=== PATIENT | female | born 2005 | race Hispanic/Latino ===

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

== ENCOUNTER 2024-09-11 12:00 | Emergency (ER) | payer OTHER, SELFPAY ==
--- OUTSIDE RECORDS SUMMARY | 2024-09-11 12:07 | XMS REPORT | Continuity of Care Document ---
Author Name Unknown Address [address] [facility] [address] [place] [address] [facility] thconnect Address [address] [facility] [place] [address] Care Team Providers Care Joint Setter Name Role Phone Pcp, Patient Does Not Have A Primary Care Physic cristiano [email or web address] Attending Clinician Lisaa barbara Doctor Unassigned, [place] Attending Clinician U Cristino Aquino MD Attending Clinician [phone] CRISTINO SAEED Attending Clinician Unavailable Ann Merritt Attending Clinician [phone] Gina Gray Attending Clinician [phone] [email or web address]_S Admitting Clinician Dwayne jimenez Payers Payer Name Policy Type Policy Number Effective Date Expirati on Date Source [facility] [id number] 2018 00:00:00 Problems Condition Name Condition Details Condition Category Status Onset Date Resolution Date Last Treatment Date Treating Clinician Comments Source Encounter for contracept marlin management , unspecifie d type Encounter for contracept marlin management , unspecifie d type Disease Active 05-18 00:00: 00 [facility] High risk sexual behavior in adolescent High risk sexual behavior in adolescent Disease Active 05-18 00:00: 00 [facility] Class 1 obesity due to excess calories with body mass index (BMI) of 34.0 to 34.9 in adult, unspecifie d whether serious comorbidit y present Class 1 obesity due to excess calories with body mass index (BMI) of 34.0 to 34.9 in adult, unspecifie d whether serious comorbidit y present Disease Active 05-18 00:00: 00 [facility] Class 1 obesity due to excess calories with body mass index (BMI) of 34.0 to 34.9 in adult, unspecifie d whether serious comorbidit y present Class 1 obesity due to excess calories with body mass index (BMI) of 34.0 to 34.9 in adult, unspecifie d whether serious comorbidit y present Disease Active 05-18 00:00: 00 [facility] BMI 34.0-34.9, adult BMI 34.0-34.9, adult Disease Active 05-18 00:00: 00 [facility] Vaginal itching Vaginal itching Disease Active 05-18 00:00: 00 [facility] Allergies, Adverse Reactions, Alerts Allergy Name Allergy Type Status Severity Reaction(s) Onset Date Inactive Date Treating Clinician Comments Source NO KNOWN ALLERGIE S Drug Class Active [facility] Social History Social Habit Start Date Stop Date Quantity Comments Source [facility] to SARS-CoV-2 (event) Not sure [facility] History SDOH Alcohol Std Drinks [facility] History SDOH Alcohol Binge [facility] History SDOH Alcohol Comment [place] [facility] History of Social function 2023-07-01 00:00:00 2023-07-01 00:00:00 [facility] Alcohol intake 2023-07-01 00:00:00 2023-07-01 00:00:00 Lifetime non-drinker (finding) [facility] Tobacco use and exposure 2019-05-18 00:00:00 2019-05-18 00:00:00 Smokeless tobacco non-user [facility] History SDOH Alcohol Frequency 2019-05-18 00:00:00 2019-05-18 00:00:00 1 [facility] Sex Assigned At 2005 00:00:00 2005 00:00:00 [facility] Smoking Status Start Date Stop Date Source Never smoked tobacco [facility] Medications Ordered Medication Name Filled Medication Name Start Date Stop Date Current Medication? Ordering Clinician Indication Dosage Frequency Signature (SIG) Comments Components Source predniSONE (DELTASONE) tablet 40 mg 2022-09 02:15: 00 07-02 01:32 :00 No 40mg 40 mg, Oral, ONCE NOW, 1 dose, On Wed07/01/23 at 2115, MARRY [facility] albuterol (PROVENTIL) 2.5 mg /3 mL (0.083 %) nebulizer solution 2.5 mg 2022-09 01:30: 00 07-02 01:42 :00 No 2.5mg 2.5 mg, Inhalation , ONCE, 1 dose, On Wed07/01/23 at 2030, STAT [facility] albuterol 90 mcg/actuati on inhaler 2022-09 00:00: 00 Yes [id number] 2{puff} Inhale 2 Puffs every 4 (four) hours as needed for Wheezing, Shortness of Breath or Bronchospa sm. [facility] predniSONE 20 mg tablet 2022-09 00:00: 00 Yes [id number] Take 2 tablets PO daily [facility] PNV 11-Iron Fum-Folic Acid-OM3 (C-GORGE DHA) 28 mg iron-1 mg -200 mg Cap 2022-09 00:00: 00 Yes [id number] 1{capsu le} Take 1 capsule by mouth in the morning. [facility] phenazopyri dine (PYRIDIUM) tablet 200 mg 06-04 01:30: 00 06-04 00:36 :00 No 200mg 200 mg, Oral, ONCE NOW, 1 dose, On Wed06/03/21 at 2030, MARRY [facility] cefTRIAXone (ROCEPHIN) 2,000 mg in NaCl 0.9% (NS) 100 mL MINI-BAG 06-04 01:15: 00 06-04 01:05 :00 No 2000mg 2,000 mg, IV Piggyback, ONCE, 1 dose, On Wed06/03/21 at 2015, Administer over 30 Minutes, 100 mL
Reas on for Anti-Infec tive: Documented Infection< br>Documen naty Infection Site: Urine
D uration of Therapy: 7 days [facility] ibuprofen (IBU) tablet 800 mg 06-04 00:15: 00 06-04 00:37 :00 No 800mg 800 mg, Oral, ONCE, 1 dose, On Wed06/03/21 at 1915, [facility] acetaminoph en (TYLENOL) tablet 1,000 mg 06-04 00:15: 00 06-04 00:37 :00 No 1000mg 1,000 mg, Oral, ONCE, 1 dose, [facility]06/03/21 [facility] 0.9% (NS) bolus infusion 2,736 mL 06-04 00:15: 00 06-04 04:28 :00 No 30mL/kg at 999 mL/hr, 2,736 mL (30 mL/kg ?91.2 kg), IV Piggyback, ONCE, 1 dose, On Wed06/03/21 at 1915, STAT [facility] iopamidol (ISOVUE 370-500 mL) injection 120 mL 06-03 23:25: 00 06-03 23:45 :00 No 120mL 120 mL, Intravenou s, ONCE, 1 dose, On Wed06/03/21 at 1845, Routine [facility] cefdinir 300 mg capsule 06-03 00:00: 00 06-14 04:59 :00 No [id number] 300mg Take 1 capsule by mouth 2 (two) times daily for 10 days. [facility] acetaminoph en-codeine 300-30 mg tablet 06-03 00:00: 00 06-11 04:59 :00 No [id number] 1{tbl} Take 1 tablet by mouth every 6 (six) hours as needed for Pain (scale 7-10) for up to 7 days. Indication s: acute pain [facility] Cetirizine (ZYRTEC) 10 mg capsule 05-18 08:30: 36 Yes Take by mouth. [facility] albuterol sulfate (VENTOLIN INHALE) 05-18 08:30: 36 Yes Inhale. [facility] Vital Signs Vital Name Observation Time Observation Value Comments S landen Heart rate 2023-07-02 01:55:00 95 /min [facility] Respiratory rate 2023-07-02 01:55:00 20 /min [facility] Oxygen saturation in Arterial blood by Pulse oximetry 2023-07-02 01:55:00 99 /min [facility] Systolic blood pressure 2023-07-02 01:55:00 125 mm[Hg] [facility] Diastolic blood pressure 2023-07-02 01:55:00 73 mm[Hg] [facility] Body temperature 2023-07-02 01:15:00 37.11 Jailyn [facility] Body weight 2023-07-02 01:13:00 99.791 kg [facility] Heart rate 2021-06-04 03:05:00 87 /min [facility] Body temperature 2021-06-04 03:05:00 37.44 Jailyn [facility] Systolic blood pressure 2021-06-04 03:00:00 93 mm[Hg] [facility] Diastolic blood pressure 2021-06-04 03:00:00 66 mm[Hg] [facility] Respiratory rate 2021-06-04 03:00:00 17 /min [facility] Oxygen saturation in Arterial blood by Pulse oximetry 2021-06-04 03:00:00 97 /min [facility] Body weight 2021-06-03 22:51:00 91.173 kg [facility] Procedures Procedure Date / Time Performed Performing Clinician Source ASSIGNMENT OF BENEFITS 2023-07-02 02:00:08 Docto r Unassigned, [place] [facility] NOTICE OF PRIVACY PRACTICES 2023-07-02 01:23:40 Doctor Unassigned, [place] [facility] CONSENT/REFUSAL FOR DIAGNOSIS AND TREATMENT 2023-07-02 01:09:39 Doctor Unassigned, [place] [facility] CT ABDOMEN PELVIS W CONTRAST 2021-06-03 23:32:57 Ann Foster [facility] POCT TEST 2021-06-03 23:29:00 Whitney Foster [facility] LACTIC ACID WHOLE BLOOD 2021-06-03 23:28:00 Uzma Foster [facility] BLOOD CULTURE SCREEN 2021-06-03 23:25:00 Janett Foster [facility] TROPONIN I 2021-06-03 [facility]:24[facility] (92165[facility] (ALB,T.PRO,BILI T,BU/BC,ALT,AST,ALK PHOS) 2021-06-03 23:24:00 Ann Foster [facility] BASIC METABOLIC PANEL (NA, K, CL, CO2, GLUCOSE, BUN, CREATININE, CA) 2021-06-03 23:24:00 Ann Foster [facility] CBC WITH DIFF 2021-06-03 23:24:00 Ann Foster [facility] PROTHROMBIN TIME / INR 2021-06-03 23:24:00 Joie Foster [facility] URINALYSIS 2021-06-03 23:24[facility]00 [facility]-BNP 2021-06-03 23:24:00 Amanda Foster [facility] COVID-19 (ID NOW RAPID TESTING) 2021-06-03 23:23:00 Ann Foster [facility] CONSENT/REFUSAL FOR DIAGNOSIS AND TREATMENT 2021-06-03 22:44:10 Doctor Unassigned, [place] [facility] Encounters Start Date/Time End Date/Time Encounter Type Admission Type Attending Clinicians Care Facility Care Department Encounter ID Source 2021-07-15 00:23:35 Emergency [facility] [id number] [facility] 2023-07-13 00:00:00 2023-07-13 00:00:00 Outpatient GC_GCBZW_Ka diyala_S PRIV PRIV [id number] [facility] 2023-07-12 00:00:00 2023-07-12 00:00:00 Outpatient GC_GCBZW_Ka danny_S [facility] [id number] [facility] 2023-07-02 00:00:00 2023-07-02 00:00:00 Patient Secure Msg Doctor Unassigned, [place] [facility] 1..114 350.1.13.10 4.2.7.2.686 [id number] [facility] 2023-07-01 20:17:00 2023-07-01 21:25:00 Emergency Cristino Saeed [facility] 1.84.114 350.1.13.10 4.2.7.2.686 [id number] [facility] 2023-07-01 20:17:00 2023-07-01 21:25:00 Emergency X CRISTINO SAEED [facility] ERT [id number] [facility] 2023-06-18 14:45:53 2023-06-18 14:45:53 Outpatient [facility] [id number] Aleks Agudelo [place] 2023-06-09 10:28:36 2023-06-09 10:28:36 Outpatient [facility] [id number] Aleks Agudelo [place] 2023-06-07 16:00:43 2023-06-07 16:00:43 Outpatient [facility] [id number] Aleks Agudelo [place] 2021-06-03 17:54:00 2021-06-03 23:44:00 Emergency Ann Foster [facility] 1.84.114 350.1.13.10 4.2.7.2.686 [id number] [facility] 2021-06-03 00:00:00 2021-06-03 00:00:00 Orders Only Doctor Unassigned, [place] [facility] 1..114 350.1.13.10 4.2.7.2.686 [id number] [facility] 2020-09-16 00:00:00 2020-09-16 00:00:00 Orders Only Doctor Unassigned, [place] [facility] [id number] 350.1.13.10 4.2.7.2.686 [id number] 2019-05-18 08:12:15 2019-05-23 16:33:58 Office Visit Gina Francis [facility] WOUND CARE TECHNICIAN [facility] [id number] 350.1.13.10 4.2.7.2.686 [id number] Results Test Description Test Time Test Comments Results Result Co mments Source [facility] [id number] 00:05:57* Test Item Value Reference Range Interpretation Comme nts NT-proBNP (test code = 1096765716) 54 pg/mL See_Comment [Automated message] The system which generated this result transmitted reference range: <=125. The reference range was not used to interpret this result as normal/abnormal. JULIUS (test code = JULIUS) Biotin has been reported to cause a negative bias, interpret results relative to patient's use of biotin. Lab Interpretation (test code = 85106-2) Normal [facility] (NA, K, CL, CO2, GLUCOSE, BUN, CREATININE, CA)2021-06-03 23:57:14* Test Item Value Reference Range Interpretation Comme nts NA (test code = 3671646409) 138 mmol/L 135-145 K (test code = 4043824510) 3.5 mmol/L 3.5-5.0 CL (test code = 7891268853) 102 mmol/L 98-108 CO2 TOTAL (test code = 6495513026) 24 mmol/L 23-31 AGAP (test code = 9494707258) 2-16 BUN (test code = 2075814464) 15 mg/dL 7-23 GLUCOSE (test code = 6388855425) 105 mg/dL 70-110 CREATININE (test code = 5042440250) 0.90 mg/dL 0.50-1.04 CALCIUM (test code = 7996914276) 9.8 mg/dL 8.6-10.6 eGFR (test code = 5765306560) mL/min/1.73m2 JULIUS (test code = JULIUS) Association of Glomerular Filtration Rate (GFR) and Staging of Kidney Disease* + + +- +| GFR (mL/min/1.73 m2) ?| With Kidney Damage ?| ?Without Kidney Damage+ ------+ ----+ ------+| ?>90 ?| ?Stage one ?| ? Normal ?+ -+ + -+| ?60-89 ?| ?Stage two ?| ? Decreased GFR ? + + +- +| ?30-59 ?| ?Stage three ?| ? Stage three ? + + +- +| ?15-29 ?| ?Stage four ? | ? Stage four ?+ -+ + -+| ?<15 (or dialysis) ? ?| ?Stage five ? | ? Stage five ?+ -+ + -+ *Each stage assumes the associated GFR level has been in effect for at least three months. ?Stages 1 to 5, with or without kidney disease, indicate chronic kidney disease. Notes: Determination of stages one and two (with eGFR >59mL/min/1.73 m2) requires estimation of kidney damage for at least three months as defined by structural or functional abnormalities of the kidney, manifested by either:Pathological abnormalities or Markers of kidney damage (including abnormalities in the composition of the blood or urine or abnormalities in imaging tests). [facility]62260[facility] (ALB,T.PRO,BILI T,BU/BC,ALT,AST,ALK PHOS)2021-06-03 23:57:14* Test Item Value Reference Range Interpretation Comme nts TOTAL BILI (test code = 0957193308) 1.1 mg/dL 0.1-1.1 BILI UNCON (test code = 0581109548) 1.0 mg/dL 0.1-1.1 BILI CONJ (test code = 7944141127) 0.0 mg/dL 0.0-0.3 T PROTEIN (test code = 8451564631) 8.3 g/dL 6.3-8.2 H ALBUMIN (test code = 0329672069) 4.7 g/dL 3.5-5.0 ALK PHOS (test code = 7894669215) 79 U/L 34-122 ALTv (test code = 1742-6) 18 U/L 5-35 AST(SGOT) (test code = 2876765526) 20 U/L 13-40 Lab Interpretation (test cod e = 94102-0) Abnormal [facility] / [id number] 23:47:30* Test Item Value Reference Range Interpretation Comme nts PROTIME PATIENT (test code = 5964-2) See_Comment [Automated messa ge] The system which generated this result transmitted reference range: 12.0 - 14.7 Seconds. The reference range was not used to interpret this result as normal/abnormal. INR (test code = 6301-6) Normal INR <1.1; Warfarin Therapeutic range 2.0 to 3.0 or 2.5 to 3.5, depending upon the indications. Lab Interpretation (test code = 61262-4) Normal [facility] WITH [id number] 23:39:49* Test Item Value Reference Range Interpretation Comme nts WBC (test code = 6690-2) See_Comment [Automated message] The system which generated this result transmitted reference range: 4.50 - 13.50 10*3/?L. The reference range was not used to interpret this result as normal/abnormal. RBC (test code = 789-8) See_Comment [Automated message] The system which generated this result transmitted reference range: 4.10 - 5.10 10*6/?L. The reference range was not used to interpret this result as normal/abnormal. HGB (test code = 718-7) 12.6 g/dL 12.0-16.0 HCT (test code = 4544-3) 39.8 % 36.0-45.0 MCV (test code = 787-2) 78.3 fL 78.0-95.0 MCH (test code = 785-6) 24.8 pg 26.0-32.0 L MCHC (test code = 786-4) 31.7 g/dL 32.0-36.0 L RDW-SD (test code = 74663-1) 43.4 fL 38.5-49.0 RDW-CV (test code = 788-0) 15.2 % 11.5-14.0 H PLT (test code = 777-3) See_Comment [Automated message] The system which generated this result transmitted reference range: 135 - 361 10*3/?L. The reference range was not used to interpret this result as normal/abnormal. MPV (test code = 48757-7) 10.8 fL 9.4-13.3 NRBC/100 WBC (test code = 3205109643) See_Comment [Automated message] The system which generated this result transmitted reference range: 0.0 - 10.0 /100 WBCs. The reference range was not used to interpret this result as normal/abnormal. NRBC x10^3 (test code = 3452553784) <0.01 See_Comment [Automated message] The system which generated this result transmitted reference range: 10*3/?L. The reference range was not used to interpret this result as normal/abnormal. GRAN MAT (NEUT) % (test code = 770-8) 92.6 % IMM GRAN % (test code = 0676949115) 0.50 % LYMPH % (test code = 736-9) 3.3 % MONO % (test code = 5905-5) 2.9 % EOS % (test code = 713-8) 0.2 % BASO % (test code = 706-2) 0.5 % GRAN MAT x10^3(ANC) (test code = 0287357719) 11.25 10*3/uL 1.50-10.30 H IMM GRAN x10^3 (test code = 6703864447) 0.06 10*3/uL 0.00-0.06 LYMPH x10^3 (test code = 731-0) 0.40 10*3/uL 0.70-7.40 L MONO x10^3 (test code = 742-7) 0.35 10*3/uL 0.00-0.50 EOS x10^3 (test code = 711-2) <0.03 0.00-0.40 BASO x10^3 (test code = 704-7) 0.06 10*3/uL 0.00-0.10 Lab Interpretation (test code = 84252-2) Abnormal [facility] [id number] 23:29:00* Test Item Value Reference Range Interpretation Comme nts POCT PREG (test code = 1605) negative On board controls acceptable with C Line (test code = 3574) present POCT PREG LOT # (test code = 3575) [id number] POCT PREG TEST DATE ( test code = 3576) 09/12/2022 Lab Interpretation (test cod e = 93451-4) Normal [facility]"
[2024-09-11 13:19] LABS: Absolute Eosinophils 0.1 K/uL (0-0.5); Absolute Lymphocytes (CBC) 0.7 K/uL (0.7-4.9); Absolute Monocytes 0.3 K/uL (0.1-1.3); Absolute Neutrophil 6.6 K/uL (1.8-8.0); Basophils % 0.5 % (0-1.3); Eosinophils % 0.8 % (0-4.4); Hematocrit 38.4 % (36.0-45.0); Hemoglobin 12.4 g/dL (12.0-15.0); Lymphocytes % 9.4 % (15.3-44.8); MCH 23.8 pg (27.0-35.0); MCHC 32.3 g/dL (32.0-36.0); MCV 73.5 fL (80-100); MPV 9.6 fL (7.6-11.3); Monocytes % 3.9 % (3.3-12.3); Neutrophils % 85.4 % (41.7-73.7); Platelets 288 thou/uL (152-406); RBC Red Blood Cell Count 5.22 M/uL (3.86-4.86); Red Cell Distribution Width 16.1 % (12.1-15.2)
[2024-09-11 13:33] LABS: Anion Gap 9.2 mEq/L (5.0-15.0); Potassium 4.2 mEq/L (3.5-5.1)
[2024-09-11] MEDS ORDERED: NA CHLORIDE 0.9% 1,000 ML ONE (13:53)
[2024-09-11 14:10] LABS: SARS-CoV-2 Antigen CONTROL BLUE LINE VIS/BG OK; SARS-CoV-2 Antigen Rapid Res Negative (Negative)
[2024-09-11 14:30] LABS: Specific Gravity 1.028 (1.005-1.030); Sqamous Epithelial 20-50 /HPF (None Seen); Urine Bacteria <20 /HPF (<20); Urine Bilirubin NEGATIVE (Negative); Urine Blood Negative (Negative); Urine Clarity Extremely Turbid (Clear); Urine Color Yellow (Yellow); Urine Culture Reflex Order NOT NEEDED; Urine Glucose NEGATIVE (Negative); Urine Ketones TRACE (Negative); Urine Micro Reflex YN NO BILL MICROSCOPIC; Urine Mucus 4+ /HPF (None Seen); Urine Nitrite NEGATIVE (Negative); Urine Protein 1+ (Negative); Urine RBC <5 /HPF (None Seen); Urine Urobilinogen Normal (Normal); Urine WBC 20-50 /HPF (<5); Urine Yeast (Budding) Trace /HPF (None Seen)
--- NOTE | 2024-09-11 14:42 | ER ---
Nurse's Notes [facility] Name: Jada Cooper Age: 19 yrs Sex: Female : 2005 Arrival Date: 09/11/2024 Time: 12:00 Bed 17 Private MD: Diagnosis: Dizziness and giddiness;UTI/ Urinary tract infection, site not specified;15 weeks gestation of Presentation: 09/11 12:27 Chief complaint: Patient states: Got dizzy three times while walking around. jl7 Coronavirus screen: At this time, the client does not indicate any symptoms associated with coronavirus-19. Ebola Screen: No symptoms or risks identified at this time. Initial Sepsis Screen: Does the patient meet any 2 criteria? No. Patient's initial sepsis screen is negative. Does the patient have a suspected source of infection? No. Patient's initial sepsis screen is negative. Risk Assessment: Do you want to hurt yourself or someone else? Patient reports no desire to harm self or others. Onset of symptoms was September 11, 2024. 12:27 Method Of Arrival: Ambulatory jl7 12:27 Acuity: JUANY 3 jl7 Triage Assessment: 12:28 General: Appears in no apparent distress. uncomfortable, Behavior is calm, cooperative, jl7 appropriate for age. Pain: Denies pain. Neuro: Level of Consciousness is awake, alert, obeys commands, Oriented to person, place, time, situation. CLINIC RECEPTIONIST: 12:30 2, Full Term 1, Premature 0, 0, Living 1, LMP 05/22/2024, jl7 unknown Historical: - Allergies: 12:28 enviromental allergies; jl7 12:28 NKDA; jl7 - PMHx: 12:28 Asthma; jl7 - Immunization history:: Adult Immunizations unknown. - Infectious Disease History:: Denies. - Social history:: Smoking status: Patient denies any tobacco usage or history of. Screenin:20 [facility] ED Fall Risk Assessment (Adult) History of falling in the last 3 months, cm10 including since admission No falls in past 3 months (0 pts) Confusion or Disorientation No (0 pts) Intoxicated or Sedated No (0 pts) Impaired Gait No (0 pts) Mobility Assist Device Used No (0 pt) Altered Elimination No (0 pt) Score/Fall Risk Level 0 - 2 = Low Risk Oriented to surroundings, Maintained a safe environment, Hourly rounding (assess needs \T\ fall precautionary measures) done. Abuse screen: Denies threats or abuse. Denies injuries from another. Nutritional screening: No deficits noted. Tuberculosis screening: No symptoms or risk factors identified. Assessment: 13:20 General: Appears in no apparent distress. comfortable, Behavior is calm, cooperative, cm10 appropriate for age. Neuro: No deficits noted. Level of Consciousness is awake, alert, obeys commands, Oriented to person, place, time, situation, Appropriate for age Reports dizziness. Respiratory: No deficits noted. Airway is patent Respiratory effort is even, unlabored, Respiratory pattern is regular, symmetrical. 14:48 Reassessment: Patient appears in no apparent distress at this time. No changes from cm10 previously documented assessment. Patient and/or family updated on plan of care and expected duration. Pain level reassessed. Patient is alert, oriented x 3, equal unlabored respirations, skin warm/dry/pink. Vital Signs: 12:27 BP 121 / 76; Pulse 88; Resp 15; Temp 97.1; Pulse Ox 100% ; jl7 13:35 BP 116 / 62 Supine; Pulse 80; cm10 13:38 BP 113 / 54 Sitting; Pulse 74; cm10 13:40 BP 107 / 56 Standing; Pulse 94; cm10 14:00 BP 117 / 61; Pulse 80; Resp 15; Pulse Ox 100% on R/A; cm10 Vitals: 13:20 Heart Tones 142 BMP. cm10 ED Course: 12:06 Patient arrived in ED. mr 12:11 Sania Pina PA-C is PHCP. sb4 12:11 Frederick Salter MD is Attending Physician. sb4 12:28 Triage completed. jl7 12:30 Arm band placed on right wrist. jl7 12:30 Inserted saline lock: 20 gauge in left antecubital area, using aseptic technique. Blood am7 collected. Flushed with 10 mL NS. 12:57 Katey Sanches, RN is Primary Nurse. cm10 13:09 CBC with Diff Sent. am7 13:09 BMP Sent. am7 13:09 SARS RAPID Sent. am7 13:09 Flu Sent. am7 13:20 Patient has correct armband on for positive identification. Bed in low position. Call cm10 light in reach. Side rails up X 1. Provided Education on: ER process and procedures.. Pulse ox on. NIBP on. 13:27 EKG done, by ED staff, reviewed by Sania Pina PA-C. am7 14:48 No provider procedures requiring assistance completed. IV discontinued, intact, cm10 bleeding controlled, No redness/swelling at site. Pressure dressing applied. Administered Medications: 13:59 Drug: NS 0.9% IV 1000 ml IV at 1 bolus Per protocol; to be given as a bolus over 60 cm10 minutes Route: IV; Rate: 1 bolus; Site: left antecubital; 14:47 Follow up: Response: No adverse reaction; IV Status: Completed infusion; IV Intake: cm10 1000ml Medication: 13:20 VIS not applicable for this client. cm10 Intake: 14:47 IV: 1000ml; Total: 1000ml. cm10 Outcome: 14:41 Discharge ordered by MD. sb4 15:11 Discharged to home ambulatory, cm10 15:11 Condition: good 15:11 Discharge instructions given to patient, Instructed on discharge instructions, follow up and referral plans. medication usage, Demonstrated understanding of instructions, follow-up care, medications, Prescriptions given X 1, 15:11 Patient left the ED. cm10 Signatures: Debbie Arias, Reg Reg mr Doug Jacobson, RN RN Sania Neumann PA-C PA-C sb4 Martinez, Clarissa, RN RN cm10 Jing Starr am7
--- NOTE | 2024-09-11 14:42 | EDPHYS ---
Physician Documentation [facility] Name: Jada Cooper Age: 19 yrs Sex: Female : 2005 Arrival Date: 09/11/2024 Time: 12:00 Bed 17 Private MD: ED Physician Frederick Salter HPI: 09/11 12:40 This 19 yrs old Female presents to ER via Ambulatory with complaints of 15 wks sb4 , Dizziness. 12:40 patient reports 3 dizzy spells while at the store today. denies anything different in sb4 her routine- eating, drinking normally. is 15 weeks without any complications thus far. denies any chest pain, shortness of breath, nausea, or vomiting. no chest pain. states the dizziness has resolved now that she has been sittig. 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 - Infectious Disease History:: Denies. - Social history:: Smoking status: Patient denies any tobacco usage or history of. ROS: 14:06 Constitutional: Negative for fever, chills, and weight loss, sb4 14:06 Neuro: Positive for dizziness, 14:06 All other systems are negative, Exam: 14:06 Constitutional: This is a well developed, well nourished patient who is awake, alert, sb4 and in no acute distress. Head/Face: Normocephalic, atraumatic. Eyes: Extra-ocular motions intact. Periorbital areas with no swelling, redness, or edema. ENT: Mucous membranes moist. Cardiovascular: Regular rate and rhythm with a normal S1 and S2. Respiratory: No increased work of breathing, no retractions or nasal flaring. Abdomen/GI: Soft, non-tender, no distension. Skin: Warm, dry with normal turgor. Normal color with no rashes, no lesions, and no evidence of cellulitis. MS/ Extremity: Pulses equal, no cyanosis. Neurovascular intact. Full, normal range of motion. Neuro: Awake and alert, GCS 15, oriented to person, place, time, and situation. Motor strength 5/5 in all extremities. Sensory grossly intact. Vital Signs: 12:27 BP 121 / 76; Pulse 88; Resp 15; Temp 97.1; Pulse Ox 100% ; jl7 13:35 BP 116 / 62 Supine; Pulse 80; cm10 13:38 BP 113 / 54 Sitting; Pulse 74; cm10 13:40 BP 107 / 56 Standing; Pulse 94; cm10 14:00 BP 117 / 61; Pulse 80; Resp 15; Pulse Ox 100% on R/A; cm10 MDM: 12:26 Medical Screening Exam initiated sb4 14:40 Data reviewed: vital signs, nurses notes, lab test result(s), EKG, and as a result, I sb4 will discharge patient. Counseling: I had a detailed discussion with the patient and/or guardian regarding the historical points, exam findings, and any diagnostic results supporting the discharge/admit diagnosis, lab results, the need for outpatient follow up, an OB/Gyne specialist, to return to the emergency department if symptoms worsen or persist or if there are any questions or concerns that arise at home. 12 12:31 Order name: CBC with Diff; Complete Time: 13:22 sb4 09/11 12:31 Order name: BMP; Complete Time: 13:40 sb4 09/11 12:31 Order name: SARS RAPID; Complete Time: 14:11 sb4 09/11 12:31 Order name: Flu; Complete Time: 14:11 sb4 09/11 13:53 Order name: UAM; Complete Time: 14:33 sb4 09/11 12:31 Order name: EKG; Complete Time: 12:32 sb4 09/11 12:31 Order name: IV Start; Complete Time: 13:09 sb4 09/11 12:31 Order name: FHT's; Complete Time: 13:21 sb4 09/11 12:31 Order name: Orthostatics; Complete Time: 13:43 sb4 09/11 12:31 Order name: EKG - Nurse/Tech; Complete Time: 13:25 sb4 EC:28 Rate is 82 beats/min. Rhythm is regular, Normal Sinus Rhythm. [place] interval is normal at sb4 136 msec. QRS interval is normal at 76 msec. QT interval is normal at 358 msec. No Q waves. T waves are Normal. No ST changes noted. Clinical impression: Normal ECG. Interpreted by me. Reviewed by me. Administered Medications: 13:59 Drug: NS 0.9% IV 1000 ml IV at 1 bolus Per protocol; to be given as a bolus over 60 cm10 minutes Route: IV; Rate: 1 bolus; Site: left antecubital; 14:47 Follow up: Response: No adverse reaction; IV Status: Completed infusion; IV Intake: cm10 1000ml Disposition: 09/12 07:01 Co-signature as Attending Physician, Frederick Salter MD I reviewed the patient's care rn provided by the Advanced Practice Provider and agree with the diagnosis and treatment plan. Disposition Summary: 09/11/24 14:41 Discharge Ordered Notes: Location: Home sb4 Problem: new sb4 Symptoms: have improved sb4 Condition: Stable sb4 Diagnosis - Dizziness and giddiness sb4 - UTI/ Urinary tract infection, site not specified sb4 - 15 weeks gestation of sb4 Followup: sb4 - With: Private Physician - When: 1 week - Reason: Recheck today's complaints, Re-evaluation by your physician Discharge Instructions: - Discharge Summary Sheet sb4 - Orthostatic Hypotension sb4 - and Urinary Tract Infection sb4 - Dizziness, [id number] sb4 Forms: - Antibiotic Education sb4 - Patient Portal Instructions sb4 - Leadership Thank You Letter sb4 Prescriptions: - Macrobid 100 mg Oral Capsule - take 1 capsule ORAL route every 12 hours for 7 days; 14 capsule; Refills: 0, sb4 Product Selection Permitted Signatures: Dispatcher [employer] Frederick Styles MD MD rn Leal, Jahala RN RN jl7 Sania Pina PA-C PA-C sb4 Katey Sanches, RN RN cm10
[2024-09-11 17:42] VITALS: TEMP 97.1; O2SAT 100
[2024-09-11 17:49] VITALS: BP 117/61
--- NOTE | 2024-09-14 12:12 | EKG ---
Test Date: 2024-09-11 Test Time: 13:23:24 Nursing Informatics Specialist: AM MEASUREMENT RESULTS: Intervals: Rate: 82 FL: 136 QRSD: 76 QT: 358 QTc: 418 [place]: P: 12 FL: 136 QRS: 76 T: 19 INTERPRETIVE STATEMENTS: Normal sinus rhythm Normal ECG No previous ECG available for comparison Electronically Signed On 09-14-24 12:11:07 [employer] by Frank Hudson
== END 2024-09-11 15:11 | disposition home or self-care (01) ==
LOC: ER 12:00
DX: O23.42 Unspecified infection of urinary tract in pregnancy, second trimester (principal); N39.0 Urinary tract infection, site not specified; Z3A.15 15 weeks gestation of pregnancy; Z11.52 Encounter for screening for COVID-19
CPT/HCPCS: 93005; 85025; 81001; 80048; 36415; 87804 ×2; 96360; 99285; 87811; J7030